=== PATIENT | male | born 1950 | race Caucasian/White ===

== ENCOUNTER 2017-04-10 11:18 | Day surgery (SDC) | payer BC ==
[~2017-04-10] VITALS: Ht 180.3 cm; Wt 100.2 kg
[~2017-04-10 11:18] MED LIST: ADDERALL5 MG PO; AMOXICILLIN 50500 MG PO
[2017-04-10] MEDS ORDERED: ELIQUIS 5MG PO (11:40)
[2017-04-10] MEDS ORDERED: TENORMIN 5050 MG/TAB PO (11:41)
[2017-04-10 11:42] VITALS: BP 154/122; PULSE 129; TEMP 97.7
[2017-04-10 12:03] LABS: POTASSIUM 5.1 mmol/L (3.4-5.0)
[2017-04-10 12:13] LABS: INR 1.2 (0.8-3.0); PROTHROMBIN TIME 14.5 SECONDS (9.7-12.8)
[2017-04-10 13:12] LABS: THYROID STIMULATING HORMONE 2.27 uIU/mL (0.465-4.680)
[2017-04-10 14:15] VITALS: BP 111/76; PULSE 54
[2017-04-10 14:30] VITALS: BP 109/72; PULSE 53
[2017-04-10 14:45] VITALS: BP 101/77; PULSE 54
[2017-04-10 15:00] VITALS: BP 112/78; PULSE 61
== END 2017-04-10 16:04 | disposition home or self-care (01) ==
LOC: COL.CAR 11:18
PROVIDERS: Internal Medicine Interventional Cardiology
DX: I48.0 Paroxysmal atrial fibrillation (principal); I34.0 Nonrheumatic mitral (valve) insufficiency; Z79.01 Long term (current) use of anticoagulants; I10 Essential (primary) hypertension; Z86.73 Personal history of transient ischemic attack (TIA), and cerebral infarction without residual deficits; E78.5 Hyperlipidemia, unspecified
CPT/HCPCS: J2704

== ENCOUNTER 2017-08-18 09:00 | Day surgery (SDC) | payer MEDICARE, BC ==
[~2017-08-18] VITALS: Ht 180.3 cm; Wt 100.0 kg
[~2017-08-18 09:00] MED LIST changes: +ELIQUIS 5MG PO; +TENORMIN 5050 MG/TAB PO
[2017-08-18 09:42] LABS: POTASSIUM 4.2 mmol/L (3.4-5.0)
[2017-08-18] MEDS ORDERED: LIPITOR20 MG PO (09:45)
[2017-08-18] MEDS ORDERED: CORDARONE200 MG/TAB PO (09:46)
[2017-08-18 09:47] LABS: INR 1.4 (0.8-3.0)
[2017-08-18 09:59] VITALS: BP 168/118; PULSE 118; TEMP 98.5
[2017-08-18 10:16] LABS: THYROID STIMULATING HORMONE 2.17 uIU/mL (0.465-4.680)
[2017-08-18 11:00] VITALS: BP 140/99; PULSE 67
[2017-08-18 11:15] VITALS: BP 138/95; PULSE 68
[2017-08-18 11:30] VITALS: BP 138/91; PULSE 89
[2017-08-18 12:00] VITALS: BP 146/92; PULSE 67
== END 2017-08-18 12:30 | disposition home or self-care (01) ==
LOC: COL.CAR 09:00
PROVIDERS: Internal Medicine Interventional Cardiology
DX: I48.0 Paroxysmal atrial fibrillation (principal); I08.1 Rheumatic disorders of both mitral and tricuspid valves; I10 Essential (primary) hypertension; Z86.73 Personal history of transient ischemic attack (TIA), and cerebral infarction without residual deficits; Z79.01 Long term (current) use of anticoagulants
CPT/HCPCS: J0282; J2250; J3010; J7060

== ENCOUNTER 2019-08-22 08:58 | Day surgery (SDC) | payer MEDICARE, OTHER ==
[~2019-08-22] VITALS: Ht 180.3 cm; Wt 100.0 kg
[~2019-08-22 08:58] MED LIST changes: +CORDARONE200 MG/TAB PO; +LIPITOR20 MG PO
[2019-08-22 09:26] VITALS: BP 130/94; PULSE 107; TEMP 97.9
[2019-08-22] MEDS ORDERED: NORVASC 5MG5 MG/TAB PO (09:49)
[2019-08-22] MEDS ORDERED: PRINZIDE 12.5 M1 TAB PO (09:50)
[2019-08-22] MEDS ORDERED: COREG 25MG25 MG/TAB PO (09:50)
[2019-08-22] MEDS ORDERED: LIPITOR 10MG10 MG PO (09:52)
[2019-08-22] MEDS ORDERED: LEVOXYL0.05 MG PO (09:52)
[2019-08-22] MEDS ORDERED: CORDARONE200 MG/TAB PO (09:53)
[2019-08-22 09:55] LABS: INR 1.2 (0.8-3.0); PROTHROMBIN TIME 13.3 SECONDS (9.7-12.8)
[2019-08-22 09:59] LABS: POTASSIUM 4.5 mmol/L (3.4-5.0)
[2019-08-22 10:34] LABS: THYROID STIMULATING HORMONE 2.09 uIU/mL (0.465-4.680)
[2019-08-22 11:45] VITALS: BP 125/92; PULSE 60
--- NOTE | 2019-08-22 11:45 | NUR ---
RECEIVED PT FROM [facility] VIA BED, PT IS AWAKE AND ALERT, NO C/O PAIN, REVIEWED DR INSTRUCTIONS WITH PT, CALL LIGHT IN REACH, SIPS ON WATER
[2019-08-22 12:00] VITALS: BP 118/84; PULSE 59
[2019-08-22 12:15] VITALS: BP 114/80; PULSE 60
[2019-08-22 12:30] VITALS: BP 104/80; PULSE 59
--- NOTE | 2019-08-22 12:30 | NUR ---
POST EKG DONE, IV D'CD INTACT, PT UP TO B/R. REVIEWED DISCHARGE INST. WITH PT ON PROCEDURE AND MODERATE SEDAION RESTRICTIONS WITH VERBAL UNDERSTANDING. OFFICE CALLED ON 2 WEEK APPT, LEFT MESSAGE TO CALL PT AT HOME.
--- NOTE | 2019-08-22 13:00 | NUR ---
PT DISCHARGE VIA W/C TO [facility]
== END 2019-08-22 13:00 | disposition home or self-care (01) ==
LOC: COL.CAR 08:58
PROVIDERS: Internal Medicine Cardiovascular Disease
DX: I48.0 Paroxysmal atrial fibrillation (principal); I08.1 Rheumatic disorders of both mitral and tricuspid valves; I10 Essential (primary) hypertension; Z95.0 Presence of cardiac pacemaker; E78.5 Hyperlipidemia, unspecified; Z86.73 Personal history of transient ischemic attack (TIA), and cerebral infarction without residual deficits; Z79.82 Long term (current) use of aspirin; Z79.01 Long term (current) use of anticoagulants
CPT/HCPCS: J2704

== ENCOUNTER 2021-02-27 07:11 | Day surgery (SDC) | payer MEDICARE, OTHER ==
[~2021-02-27] VITALS: Ht 180.3 cm; Wt 100.4 kg
[~2021-02-27 07:11] MED LIST changes: +COREG 25MG25 MG/TAB PO; +LEVOXYL0.05 MG PO; +LIPITOR 10MG10 MG PO; +NORVASC 5MG5 MG/TAB PO; +PRINZIDE 12.5 M1 TAB PO
[2021-02-27 08:29] LABS: POTASSIUM 3.9 mmol/L (3.5-4.5)
[2021-02-27 08:34] LABS: INR 1.3 (0.8-3.0)
[2021-02-27 08:58] LABS: THYROID STIMULATING HORMONE 1.83 uIU/mL (0.350-4.940)
[2021-02-27 09:05] VITALS: BP 127/86; PULSE 109; TEMP 98.3
[2021-02-27 10:15] VITALS: BP 115/68; PULSE 62
[2021-02-27 10:30] VITALS: BP 124/75; PULSE 6
[2021-02-27 10:45] VITALS: BP 128/78; PULSE 68
--- NOTE | 2021-02-27 10:50 | NUR ---
Report to Tapan yin.
[2021-02-27 11:00] VITALS: BP 128/89; PULSE 68
--- NOTE | 2021-02-27 11:16 | NUR ---
IV DCd intact, no redness, edema to site. Went over discharge instructions with patient, he verbalized understanding and signed. Patient changed into street clothes and escorted from unit via wheelchair to car.
== END 2021-02-27 13:52 ==
LOC: COL.CAR 07:11
PROVIDERS: Internal Medicine Cardiovascular Disease
DX: I48.0 Paroxysmal atrial fibrillation (principal); I48.92 Unspecified atrial flutter; I10 Essential (primary) hypertension; M19.90 Unspecified osteoarthritis, unspecified site; Z86.73 Personal history of transient ischemic attack (TIA), and cerebral infarction without residual deficits
CPT/HCPCS: J2704; J7030